=== PATIENT | male | born 2000 | race Caucasian/White ===

== ENCOUNTER 2022-11-05 03:06 | Emergency (ER) | payer OTHER | END 2022-11-05 04:00 | disposition home or self-care (01) | LOC: CSHERS 03:06 | DX: S71.111A Laceration without foreign body, right thigh, initial encounter (principal); W25.XXXA Contact with sharp glass, initial encounter | CPT/HCPCS: 12032 ==

== ENCOUNTER 2022-11-17 14:40 | Emergency (ER) | payer OTHER | END 2022-11-17 16:41 | disposition home or self-care (01) | LOC: CSHERS 14:40 | DX: S71.111D Laceration without foreign body, right thigh, subsequent encounter (principal) ==